=== PATIENT | male | born 2005 | race Caucasian/White ===

== ENCOUNTER 2025-02-03 08:26 | Emergency (ER) | payer BC, SELFPAY ==
[2025-02-03 09:00] VITALS: BP 114/68; PULSE 45; RESP 18; TEMP 36.7; O2SAT 98
--- NOTE | 2025-02-03 09:24 | W.ED.GENAD ---
Discharge Plan Disposition Patient Disposition: Home Condition: Good Discharge Details Clinical Impression: Injury of shoulder Primary Care Provider: None,None ED Provider: Abena Dobbs Home Meds and New Rx's Prescriptions: No Action No Known Home Meds Discharge Instructions Instructions: Shoulder Pain ED Additional Instructions: As we discussed, your x-ray is reassuring. No evidence to suggest fracture or dislocation. Your exam was also reassuring for your rotator cuff. I believe that you may have pulled or injured the muscle in your upper shoulder. I believe this was made worse with the repetitive movements at work. I encourage you to rest this for the next few days. Work note is attached. Please continue to encourage hydration. Heat or ice to help with discomfort. Please continue with exercise of the shoulder to keep your range of motion intact. You may use Tylenol and/or ibuprofen as needed for discomfort. Please take as directed on the packaging. Please try to avoid any heavy lifting for the next few days to allow this to heal. Follow-up with primary care in the next 1 to 2 weeks for reevaluation. If you develop any new or worsening symptoms please seek care urgently once again Stand Alone Forms: Work Release Discharge Data Discharge Date/Time-TO BE ENTERED AT DEPARTURE: 02/03/25 10:47 HPI General Date/Time Provider Initiated Documentation: 02/03/25 08:27. Information obtained by: patient and RN notes reviewed. History of Present Illness 20 year old M presents to the emergency department with the chief complaint of right shoulder pain, described as moderate, with intensity rated at 6. Quality is described as aching, and is localized to the right and upper extremity. Patient reports no radiation. Patient started experiencing this day(s) (3) and it has been constant. Immobilization improves symptom(s), Movement worsens symptoms . Patient notes no other symptoms.. Patient did receive the following treatments prior to arrival, none Related Data Home Medications ?Medication ?Instructions ?Recorded ?Confirmed Unknown [No Known Home Meds] 02/03/25 02/03/25 Allergies Allergy/AdvReac Type Severity Reaction Status Date / Time No Known Allergies Allergy Unverified 02/03/25 08:59 General Stated Complaint: Orthopedic MICHELLE: 4 Review of Systems Constitutional Constitutional: Reports as per HPI and Denies weakness Cardiovascular Cardiovascular: Reports as per HPI Respiratory Respiratory: Reports as per HPI and Denies cough Musculoskeletal Musculoskeletal: Reports as per HPI and Denies tingling Integumentary/Breasts Skin/Breast: Reports as per HPI, Denies rash and Denies wounds Neurologic Neurologic: Reports as per HPI, Denies tingling, Denies paresthesias and Denies weakness Exam Const General: cooperative, healthy appearing, comfortable, no acute distress, well developed and well groomed Nutritional Appearance: average body habitus and well nourished Orientation: alert and awake Resp Effort & Inspection: normal respiratory effort, able to speak in complete sentences and no respiratory distress Cardio Rate: regular rate Rhythm: regular rhythm Skin General skin exam: no rashes or lesions noted Lesions: no lesions Rashes: no rashes Trauma: no lacerations or abrasions Neuro General: patient alert and patient awake Cognition: normal cognition Speech: speech normal Gait: normal gait Motor: muscle tone normal throughout Sensory Exam: no sensory deficits noted Extrem Shoulder/upper arm images:  1. Area of discomfrot along the superior aspect of the right shoulder. Patient has 2+ distal pulses. Sesnation intact. Intact over the deltoid. Full ROM of shoulder, elbow, wrist, hand. No weakness with Neer Zapien. Normal Speed exam. No deformity. AC joint stable, no deformity. Course Vital Signs Vital signs: Vital Signs Temperature 36.7 C 02/03/25 09:00 Pulse 45 L 02/03/25 09:00 Respiratory Rate 18 02/03/25 09:00 Blood Pressure 114/68 02/03/25 09:00 Pulse Oximetry 98 02/03/25 09:00 Temperature 36.7 C 02/03/25 09:00 Temperature Source Oral 02/03/25 09:00 Pulse 45 L 02/03/25 09:00 Respiratory Rate 18 02/03/25 09:00 Blood Pressure 114/68 02/03/25 09:00 Blood Pressure Position Sitting 02/03/25 09:00 Pulse Oximetry 98 02/03/25 09:00 Oxygen Delivery Method Room Air 02/03/25 09:00 Oxygen Flow Rate 0 02/03/25 09:00 Pain Level 6 02/03/25 09:00 Medical Decision Making Jan is a pleasant RHD 20 year old male presenting with c/c of right shoulder pain that began a few days ago after trying to lift a log and feeling a pop along hte superior aspect of the shoulder. Pain worsening, particularly this AM. States that yesterday, he was at work, had frequent repetiative motions. Pain noted to increase, along iwth stiffness this mornign when he awoke. He denies fall or injury. No previous issue with this shoulder. He denies any weakness, numbness or tingling. On exam, patient appears non-toxic. Neurovascularly intact. Full ROM. No defecit or defect. Discomfort along the superior aspect of ht eshoulder. No weakness of the rotator cuff. No palpable defect. Discussed differential. Based on his sesnation during the event, considered fx or subluxation. XR obtain, no acute abnormality. Discussed with patient. Pain does not seem to involve the rotator cuff, concerns ar emore for muscular pain. No deformity. Encouraged RICE and supportive care. Will give work note. In setting of recent injury, and repetative movements at work yesterday that were straining on the shoulder, this is likey what caused the discomfort. Discussed referral to PT. Put on list for local PCP. Return precautions discussed. All o fhis questions adn concerns were addressed, he is in agreement with [facility] plan. PFSH All Active Problems (Updated 02/03/25 @ 10:27 by NATO Chandler) Injury of shoulder (Acute) Medical History (Updated 02/03/25 @ 10:27 by NATO Chandler) ADHD (attention deficit hyperactivity disorder) Cat scratch fever Family History Mother Type 2 diabetes mellitus Father No problems noted. Other Type 2 diabetes mellitus PGM Social History Smoking/Tobacco Use Status: Current every day Tobacco Type: e-cigarettes Smoking risk assessment performed?: Yes Alcohol Intake: current Alcohol Intake frequency: holidays/special occasions only Drug use: Daily Substance use type: marijuana
--- NOTE | 2025-02-03 09:30 | DI.RAD_ITS ---
Exam(s) XR SHOULDER RT COMPLETE 2+V EXAM: XR SHOULDER RT COMPLETE 2+V CLINICAL HISTORY: pop lifting log. TECHNIQUE: 2D digital imaging was performed. Five views. COMPARISON: No exams were available for comparison FINDINGS: BONES: No acute fracture is present. No bony destructive lesion is seen. JOINTS: No dislocation present. The AC joint is not widened. SOFT TISSUE: Normal. IMPRESSION: Unremarkable radiographs of the right shoulder. DATA REPOSITORY: RADIATION DOSE DELIVERED:
[2025-02-03 10:46] VITALS: BP 124/80; PULSE 60; RESP 18; TEMP 36.8; O2SAT 99
== END 2025-02-03 10:47 | disposition home or self-care (01) ==
PROVIDERS: Emergency Provider Physician Assistant
DX: S49.81XA Other specified injuries of right shoulder and upper arm, initial encounter (principal); F17.290 Nicotine dependence, other tobacco product, uncomplicated; X58.XXXA Exposure to other specified factors, initial encounter
CPT/HCPCS: 99283; 73030

== ENCOUNTER 2025-07-12 17:08 | Emergency (ER) | payer OTHER, SELFPAY ==
[2025-07-12 17:35] VITALS: BP 144/83; PULSE 65; RESP 18; TEMP 36.8; O2SAT 98
--- NOTE | 2025-07-12 18:42 | W.ED.GENAD ---
Discharge Plan Disposition Patient Disposition: Home Condition: Stable Discharge Details Clinical Impression: Foreign body in left ear Primary Care Provider: None,None ED Provider: Jose Gonzalez Home Meds and New Rx's Prescriptions: No Action No Known Home Meds Discharge Instructions Instructions: Foreign Body in Ear Additional Instructions: You were seen in the emergency department for the foreign body in your left ear that was removed with forceps, please return for any emergent concerns. Stand Alone Forms: Portal Information Discharge Data Discharge Date/Time-TO BE ENTERED AT DEPARTURE: 07/12/25 18:57 HPI General Date/Time Provider Initiated Documentation: 07/12/25 17:58. HPI Narrative: 20 year-old male presents to ED today by POV/ambulating with a chief complaint of foreign body stuck in L ear- the rubber tip from an ear-still cleaner tube with onset for the past week. Quality described as not painful, no radiation to hearing loss, fever, drainage of material from the ear. Severity is described as mild. Palliating factors include has tried to remove it but cannot get it out. Provoking factors include nothing specific. Patient not anticoagulated. Related Data Home Medications ?Medication ?Instructions ?Recorded ?Confirmed Unknown [No Known Home Meds] 02/03/25 07/12/25 Allergies Allergy/AdvReac Type Severity Reaction Status Date / Time No Known Allergies Allergy Unverified 07/12/25 17:40 General Stated Complaint: EarProblem MICHELLE: 4 Review of Systems All systems reviewed & are unremarkable except as noted in HPI and below Exam Narrative Exam Narrative: GENERAL APPEARANCE: Well-nourished, non-toxic, awake and alert, atraumatic, no acute distress. SKIN: Warm, pink, dry, intact, without rashes/lesions/ulcerations. HEAD: Normocephalic, atraumatic, normal hair distribution for gender/age. EYES: Normal conjunctiva, no exudates on lids/lashes. ENT: Nares patent, no circumoral cyanosis, no facial swelling, small light blue rubber tip of ear curette camera device seen in left otic canal, TM intact, no canal erythema or purulent material NECK: Supple, trachea midline, painless cervical ROM. LUNGS/CHEST: Non-labored respirations, normal A/P diameter, symmetrical expansion, no chest wall deformity HEART (CV/PV): No peripheral edema, no JVD. ABDOMEN: Soft, non-distended, no guarding. MSK: Normal ROM, no swelling/deformity to bilateral UEs or LEs, moving all extremities without weakness, no cyanosis, spine midline without tenderness, normal curvature. NEURO: Mental Status AAOx4 - alert to person, place, time, events No facial droop, no forehead involvement. Motor: No focal weakness - strength 5/5 in bilateral UEs and LEs, proximal and distal, symmetric. Sensory: sensation intact to light touch globally. Gait normal: patient ambulated without ataxia into ED room. PSYCH: euthymic, cooperative, pleasant, appropriate speech Course Vital Signs Vital signs: Vital Signs Temperature 36.8 C 07/12/25 17:35 Pulse 65 07/12/25 17:35 Respiratory Rate 18 07/12/25 17:35 Blood Pressure 144/83 H 07/12/25 17:35 Pulse Oximetry 98 07/12/25 17:35 Temperature 36.8 C 07/12/25 17:35 Temperature Source Oral 07/12/25 17:35 Pulse 65 07/12/25 17:35 Respiratory Rate 18 07/12/25 17:35 Blood Pressure 144/83 H 07/12/25 17:35 Blood Pressure Position Sitting 07/12/25 17:35 Pulse Oximetry 98 07/12/25 17:35 Oxygen Delivery Method Room Air 07/12/25 17:35 Oxygen Flow Rate 0 07/12/25 17:35 Pain Level 0 07/12/25 17:35 Medical Decision Making This dictation utilizes [id number] dictation software and may contain unedited grammatical errors. 9 month-old male presents to ED today by POV/ambulating with his parents with a chief complaint of fussiness, possible ear infection, and coughing with onset the past few nights. Quality described as generalized fussiness, no radiation to poor oral intake, lack of making wet diapers, high fevers, labored respirations, nausea/vomiting, diarrhea. Severity is described as mild to moderate. Palliating factors include nothing specific beyond some intermittent OTC antipyretics. Provoking factors include nothing specific. Patients' medical history: noncontributory. Family and social history: noncontributory. Pertinent exam findings / vital signs include small rubber tip of ear curette/camera device seen in L ear canal, no perforation of TM. Differential / pathologies of concern include foreign body of ear. Diagnostic studies of: -none. Interventions of: -physical removal. ED Course/Assessment/Plan: 20-year-old male lost the rubber tip of a camera ear curette in his left ear canal and I remove this with simple curved mosquito forceps, no trauma to the tympanic membrane, counseled return criteria for any emergent concerns. Findings not consistent with TM perforation, otitis externa. Disposition of foreign body in left ear. Patient verbalized understanding of the plan and return to ED criteria and engaged in shared decision making. Medical Records Medical records reviewed: Yes I reviewed the patient's medical records. PFSH All Active Problems (Updated 07/12/25 @ 18:47 by NATO Olsen) Foreign body in left ear (Acute) Medical History (Updated 07/12/25 @ 18:47 by NATO Olsen) ADHD (attention deficit hyperactivity disorder) Cat scratch fever Family History Mother Type 2 diabetes mellitus Father No problems noted. Other Type 2 diabetes mellitus PGM Social History Smoking/Tobacco Use Status: Current every day Tobacco Type: e-cigarettes Smoking risk assessment performed?: Yes Alcohol Intake: current Alcohol Intake frequency: holidays/special occasions only Alcohol type: beer Drug use: Daily Substance use type: marijuana Do you feel safe at home: Yes Do you feel safe in your relationship?: Yes
[2025-07-12 18:56] VITALS: RESP 18
== END 2025-07-12 18:57 | disposition home or self-care (01) ==
LOC: ER 19:01
PROVIDERS: Emergency Provider Physician Assistant
DX: T16.2XXA Foreign body in left ear, initial encounter (principal); X58.XXXA Exposure to other specified factors, initial encounter
CPT/HCPCS: 99283; 99282; 69200